=== PATIENT | male | born 1985 | race Caucasian/White ===

== ENCOUNTER 2020-11-04 04:39 | Emergency (ER) | payer OTHER, SELFPAY ==
[~2020-11-04] VITALS: Ht 167.6 cm; Wt 73.4 kg
--- NOTE | 2020-11-04 04:48 | NUR ---
REPORT FROM AUGUSTINE DAO.
--- NOTE | 2020-11-04 04:52 | NUR ---
PT. VERBALLY AGRESSIVE TO STAFF. OFFICER WITH PT. PT. DENIES ANY SI/SA/HI PT. STATES HE IS ALLERGIC TO NARCAN. PT. ALSO SHOUTS "I AM UNCONSCIOUS", WHEN ASKED FOR URINE SAMPLE. PT. TO X-RAY VIA [facility].
--- NOTE | 2020-11-04 05:22 | NUR ---
PT. PLACED ON ETCO2=20-23; DR. MICHAEL AWARE. RESP 10. PT. WITH FREQUENT FULL BODY TWITCHING. WHEN PT. WAS ASKED WHAT HIS ALLERGY IS TO NARCAN HE STATES "THEY GAVE ME WAY TOO MUCH ONCE AND IT PUT MY BODY INTO SHOCK AND THEY HAD TO GIVE ME HALDOL!"
[2020-11-04] MEDS ORDERED: SODIUM CHLORIDE 0.9% 1,000ML IVBOLUS ONE (06:00)
--- NOTE | 2020-11-04 06:09 | NUR ---
PER DR. MICHAEL OK TO USE FOOT FOR BLOOD DRAW PT. IS IV DRUG ABUSER AND HAS NO ACCESS ON ARMS.
--- NOTE | 2020-11-04 06:26 | NUR ---
IMMEDIATLY AFTER EKG WAS COMPLETED. PT. VIOLENTLY DRY-HEAVING AND SPITTING UP WHITE FOAMY SUBSTANCE. PER OFFICER AT BS PT. WAS SPITTING ON THE STAFF AT [facility] WHEN THEY WERE ATTEMPTING TO TAKE PT. TO INTERMEDIATE. PT. WAS GIVEN VOMIT BAG AND ASKED TO USE IT INSTEAD OF SPITTING ON FLOOR. PT. UNCOOPERATIVE AND FLAITING AROUND ON GURNEY. PT. CONTINUALLY REMOVING MONITORS AND SCREAMING. PT. SCREAMING AT THE TOP OF HIS LUNGS "I NEED TO PEE". URINAL PLACED ON THE BED NEXT TO PATIENT. PT. INSTRUCTED TO STOP SCREAMING. THEN PT. STARTED SCREAMING "DON'T THROW A URINAL AT ME!! YOU JUST THREW THAT AT ME!" PT. THEN THREW THE URINAL AT THIS RN. RN LEFT ROOM. DURING THIS EVENT OFFICER WAS NOT AT BS.
[2020-11-04 06:27] LABS: ALANINE AMINOTRANSFERASE 67 U/L (12-78); ALBUMIN 3.6 g/dL (3.4-5.0); ANION GAP 7 mmol/L (5-15); CALCIUM 8.9 mg/dL (8.5-10.1); CHLORIDE 110 mmol/L (98-107); CREATININE 0.63 mg/dL (0.7-1.3)
[2020-11-04 06:29] LABS: ALKALINE PHOSPHATASE 91 U/L (45-117); TOTAL PROTEIN 7.6 g/dL (6.4-8.2)
[2020-11-04] MEDS ORDERED: ZIPRASIDONE 20 MG INJ IM ONE ×2 (06:32→07:00)
[2020-11-04 06:36] LABS: BASOPHILS % (AUTO) 1 % (0-1); EOSINOPHILS % (AUTO) 0 % (1-7); LYMPHOCYTES % (AUTO) 24 % (22-44); MEAN CORPUSCULAR HEMOGLOBIN 28.7 pg (27.5-34.5); MEAN CORPUSCULAR HGB CONC 34.5 g/dL (33.2-36.2); MEAN PLATELET VOLUME 9.1 fL (7.4-10.4); MONOCYTES % (AUTO) 8 % (2-9); NEUTROPHILS % (AUTO) 67 % (42-75); PLATELET COUNT 135 x10^3/uL (130-400); RED BLOOD COUNT 5.12 x10^6/uL (4.38-5.82); RED CELL DISTRIBUTION WIDTH 13.1 % (9.4-14.8)
--- NOTE | 2020-11-04 08:36 | NUR ---
LATE ENTRY: BS REPORT TO AUGUSTINE BAUMANN. SECURITY TO BS FOR RESTRAINTS.
--- NOTE | 2020-11-04 09:50 | NUR ---
PD at door, security called to remove restraints, UDS verbally cancelled per MD
[2020-11-04 10:33] VITALS: BP 140/86
== END 2020-11-04 10:33 ==
LOC: ED 10:28
DX: F11.10 Opioid abuse, uncomplicated (principal); R11.10 Vomiting, unspecified; R41.82 Altered mental status, unspecified; R94.31 Abnormal electrocardiogram [ECG] [EKG]; F17.210 Nicotine dependence, cigarettes, uncomplicated
CPT/HCPCS: 36415; 74022; 74176; 80053; 80320; 85025; 93005; 96372; 99285; J3486; G0480